=== PATIENT | male | born 1965 | race Caucasian/White ===

== ENCOUNTER 2021-04-22 10:41 | Day surgery (SDC) | payer OTHER ==
[~2021-04-22] VITALS: Ht 180.3 cm; Wt 72.6 kg
[2021-04-22 11:42] LABS: BASOPHILS ABSOLUTE AUTO 0.06 K/mm3 (0.00-0.23); BASOPHILS PERCENT AUTO 1 % (0-2); EOSINOPHILS ABSOLUTE AUTO 0.14 K/mm3 (0.00-0.68); EOSINOPHILS PERCENT AUTO 3 % (0-6); Hematocrit 48.1 % (37.0-53.0); Hemoglobin 16.6 g/dL (13.5-17.5); IMMATURE GRAN ABSOLUTE AUTO 0.01 K/mm3 (0.00-0.10); IMMATURE GRAN PERCENT AUTO 0 % (0-1); LYMPHOCYTES ABSOLUTE AUTO 2.03 K/mm3 (0.84-5.20); LYMPHOCYTES PERCENT AUTO 36 % (21-46); MONOCYTES ABSOLUTE AUTO 0.61 K/mm3 (0.16-1.47); MONOCYTES PERCENT AUTO 11 % (4-13); Mean Corpuscular HGB 33.5 pg (26.0-34.0); Mean Corpuscular HGB Conc 34.5 g/dL (31.5-36.5); Mean Corpuscular Volume 97 fL (80-100); NEUTROPHILS ABSOLUTE AUTO 2.74 K/mm3 (1.96-9.15); NEUTROPHILS PERCENT AUTO 49 % (41-73); Platelet Count 219 K/mm3 (150-400); RDW Coefficient Variation 12.7 % (11.7-14.2); RDW Standard Deviation 45.5 fL (35.1-46.3); Red Blood Cell Count 4.95 M/mm3 (4.30-5.90); White Blood Cell Count 5.59 K/mm3 (4.00-11.30)
[2021-04-22 12:01] LABS: Alanine Aminotransfer (ALT/SGP 75 U/L (12-78); Albumin, Blood 3.9 g/dL (3.4-5.0); Albumin/Globulin Ratio 0.9 (0.8-1.8); Alk Phos 57 U/L (50-136); Anion Gap 5 mmol/L (6-16); Aspartate Aminotrans (AST/SGOT 101 U/L (12-37); Blood Urea Nitrogen 3 mg/dL (8-24); Bun/Creatinine Ratio 4.5 (12.0-20.0); CO2, Blood 26 mmol/L (21-32); Calcium, Blood 8.7 mg/dL (8.5-10.1); Chloride, Blood 99 mmol/L (98-108); Creatinine, Blood 0.67 mg/dL (0.60-1.20); Globulin, Blood 4.4 g/dL (2.2-4.0); Glomerular Filtration Rate >60 (60-); Glucose, Blood 72 mg/dL (70-99); Potassium, Blood 5.3 mmol/L (3.5-5.5); Sodium, Blood 130 mmol/L (136-145); Total Protein, Blood 8.3 g/dL (6.4-8.2)
--- NOTE | 2021-04-22 14:21 | NUR ---
INTO [facility] V[facility] ADMISSION TO UNIT STARTED.
--- NOTE | 2021-04-22 14:58 | NUR ---
04/22/21 1458 OCHOA BURLESON History, Chart, Medications and Allergies reviewed before start of procedure. O2 VIA POM INTACT THROUGHOUT SEDATION/PROCEDURE. 3-LEAD EKG REVIEWED WITH PHYSICIAN PRIOR TO START OF PROCEDURE. MONITOR INTACT WITH CONTINUOUS PULSE OXIMETRY AND INTERMITTENT BP. PATIENT DETERMINED TO BE ASA APPROPRIATE FOR PROPOFOL SEDATION PRIOR TO START OF PROCEDURE BY .
[2021-04-22 15:12] LABS: SARS-Cov-2 (COVID-19) PCR, MMC NEGATIVE (NEGATIVE)
--- NOTE | 2021-04-22 15:33 | NUR ---
arrived from endo 1 to step vss.
--- NOTE | 2021-04-22 16:37 | NUR ---
RIDE HERE PATIENT DISCHARGED WITH ALL BELONGINGS AND DISCHARGE INSTRUCTIONS. HOME WIHT PARENTS.
== END 2021-04-22 16:37 | disposition home or self-care (01) ==
LOC: ER 10:41 → ORSCMMR 14:01
PROVIDERS: Internal Medicine Gastroenterology; Physician Assistant
PROC: 0D758ZZ Dilation of Esophagus, Via Natural or Artificial Opening Endoscopic (ICD-10-PCS; principal; 2021-04-22 14:30)
DX: K22.2 Esophageal obstruction (principal); R13.10 Dysphagia, unspecified; K20.80 Other esophagitis without bleeding; F17.210 Nicotine dependence, cigarettes, uncomplicated; Z20.822 Contact with and (suspected) exposure to COVID-19
CPT/HCPCS: 71046; 80053; 85025; 93005; 93010; 99285-25; C1726; J2704; J7030; J7120; U0004

== ENCOUNTER 2021-05-07 06:44 | Day surgery (SDC) | payer OTHER ==
[~2021-05-07] VITALS: Ht 182.9 cm; Wt 65.8 kg
== END 2021-05-07 09:00 | disposition home or self-care (01) ==
LOC: ORSCSDS 06:44
PROVIDERS: Internal Medicine Gastroenterology
PROC: 0D758ZZ Dilation of Esophagus, Via Natural or Artificial Opening Endoscopic (ICD-10-PCS; principal; 2021-05-07 08:15)
DX: K22.2 Esophageal obstruction (principal); K20.90 Esophagitis, unspecified without bleeding; Z79.899 Other long term (current) drug therapy
CPT/HCPCS: C1726; J0330; J0461; J2405; J2704; J7120

== ENCOUNTER 2021-12-07 07:03 | Emergency (ER) | payer OTHER ==
[~2021-12-07] VITALS: Ht 180.3 cm; Wt 72.6 kg
== END 2021-12-07 07:59 | disposition home or self-care (01) ==
LOC: ER 07:03
DX: G56.21 Lesion of ulnar nerve, right upper limb (principal); F17.210 Nicotine dependence, cigarettes, uncomplicated
CPT/HCPCS: 99283

== ENCOUNTER 2022-01-07 08:14 | Day surgery (SDC) | payer OTHER ==
[~2022-01-07] VITALS: Ht 182.9 cm; Wt 68.6 kg
--- NOTE | 2022-01-07 13:02 | NUR ---
01/07/22 1302 ADITYA BRADLEY 75 ML OF LR FLUIDS LEFT IN STEP DWN AT DC. IV DC 1310
== END 2022-01-07 13:24 | disposition home or self-care (01) ==
LOC: ORSCSDS 08:14
PROVIDERS: Orthopaedic Surgery
PROC: 01S40ZZ Reposition Ulnar Nerve, Open Approach (ICD-10-PCS; principal; 2022-01-07 09:45)
DX: G56.21 Lesion of ulnar nerve, right upper limb (principal); F17.210 Nicotine dependence, cigarettes, uncomplicated
CPT/HCPCS: J0171; J0690; J1100; J2405; J2704; J3010; J7120

== ENCOUNTER 2023-04-13 22:12 | Observation (INO) | payer OTHER ==
[~2023-04-13] VITALS: Ht 182.9 cm; Wt 71.1 kg
[2023-04-14] VITALS (18 sets, daily range): BP systolic 92–128; BP diastolic 53–64
[2023-04-14 00:22] LABS: BASOPHILS ABSOLUTE AUTO 0.08 K/mm3 (0.00-0.23); BASOPHILS PERCENT AUTO 1 % (0-2); EOSINOPHILS ABSOLUTE AUTO 0.33 K/mm3 (0.00-0.68); EOSINOPHILS PERCENT AUTO 3 % (0-6); Hematocrit 45.9 % (37.0-53.0); Hemoglobin 16.1 g/dL (13.5-17.5); IMMATURE GRAN ABSOLUTE AUTO 0.04 K/mm3 (0.00-0.10); IMMATURE GRAN PERCENT AUTO 0 % (0-1); LYMPHOCYTES ABSOLUTE AUTO 2.55 K/mm3 (0.84-5.20); LYMPHOCYTES PERCENT AUTO 20 % (21-46); MONOCYTES ABSOLUTE AUTO 0.59 K/mm3 (0.16-1.47); MONOCYTES PERCENT AUTO 5 % (4-13); Mean Corpuscular HGB 34.7 pg (26.0-34.0); Mean Corpuscular HGB Conc 35.1 g/dL (31.5-36.5); Mean Corpuscular Volume 99 fL (80-100); Mean Platelet Volume 9.6 fL (9.1-12.4); NEUTROPHILS ABSOLUTE AUTO 8.93 K/mm3 (1.96-9.15); NEUTROPHILS PERCENT AUTO 71 % (41-73); Platelet Count 222 K/mm3 (150-400); RDW Coefficient Variation 12.8 % (11.7-14.2); RDW Standard Deviation 46.9 fL (35.1-46.3); Red Blood Cell Count 4.64 M/mm3 (4.30-5.90); White Blood Cell Count 12.52 K/mm3 (4.00-11.30)
[2023-04-14 00:40] LABS: Bun/Creatinine Ratio 9.5 (12.0-20.0); Creatinine, Blood 1.05 mg/dL (0.60-1.20); Potassium, Blood 3.7 mmol/L (3.5-5.5)
--- NOTE | 2023-04-14 01:43 | NUR ---
04/14/23 0143 Cheyenne Mejía History, Chart, Medications and Allergies reviewed before start of procedure.PT TO BE INMTUBATED BY DR YUAN IN OR ROOM1.
[2023-04-14 04:21] LABS: BASOPHILS ABSOLUTE AUTO 0.04 K/mm3 (0.00-0.23); BASOPHILS PERCENT AUTO 0 % (0-2); EOSINOPHILS ABSOLUTE AUTO 0.12 K/mm3 (0.00-0.68); EOSINOPHILS PERCENT AUTO 1 % (0-6); Hematocrit 35.1 % (37.0-53.0); Hemoglobin 12.2 g/dL (13.5-17.5); IMMATURE GRAN ABSOLUTE AUTO 0.04 K/mm3 (0.00-0.10); IMMATURE GRAN PERCENT AUTO 0 % (0-1); LYMPHOCYTES ABSOLUTE AUTO 0.71 K/mm3 (0.84-5.20); LYMPHOCYTES PERCENT AUTO 6 % (21-46); MONOCYTES ABSOLUTE AUTO 0.59 K/mm3 (0.16-1.47); MONOCYTES PERCENT AUTO 5 % (4-13); Mean Corpuscular HGB Conc 34.8 g/dL (31.5-36.5); Mean Corpuscular Volume 101 fL (80-100); Mean Platelet Volume 10.2 fL (9.1-12.4); NEUTROPHILS ABSOLUTE AUTO 9.84 K/mm3 (1.96-9.15); NEUTROPHILS PERCENT AUTO 87 % (41-73); Platelet Count 180 K/mm3 (150-400); RDW Coefficient Variation 12.8 % (11.7-14.2); RDW Standard Deviation 47.7 fL (35.1-46.3); Red Blood Cell Count 3.49 M/mm3 (4.30-5.90); White Blood Cell Count 11.34 K/mm3 (4.00-11.30)
[2023-04-14 04:43] LABS: Albumin, Blood 2.9 g/dL (3.4-5.0); Bilirubin, Total 0.7 mg/dL (0.1-1.0); Bun/Creatinine Ratio 18.6 (12.0-20.0); Calcium, Blood 7.9 mg/dL (8.5-10.1); Creatinine, Blood 0.86 mg/dL (0.60-1.20); Globulin, Blood 2.9 g/dL (2.2-4.0); Potassium, Blood 4.7 mmol/L (3.5-5.5); Total Protein, Blood 5.8 g/dL (6.4-8.2)
--- NOTE | 2023-04-14 05:23 | NUR ---
SHIFT SUMMARY ASSUMED CARE OF PT AT 0320. PT IS A/OX4. HEART SOUNDS REGULAR. LUNG SOUNDS TIGHT. PT REPORTS SMOKING A PACK A DAY. PT USED URINAL AT BEDSIDE. PT C/O HIS THROAT HURTING AND BEING TIRED. VITAL SIGNS STABLE. PT RESTING IN ROOM.
[2023-04-14 10:10] LABS: Hematocrit 36.5 % (37.0-53.0); Hemoglobin 12.5 g/dL (13.5-17.5)
--- NOTE | 2023-04-14 10:15 | NUR ---
CARE ASSUMPTION/PATIENT TRANSFER TO [facility] This RN assumed care at 0700. Patient is alert and oriented x4. vital signs stable. tele sr 60-70. spo2 >90% on room air. patient reports no pain, chest pain/pressure or shortness of breath. patient is indepdent in the room and in ADL's. patient started on a protonix drip at 10mls/hr continous. normal saline at 75mls/hr. patient has a bed a [facility] in [place]. this rn has called the hospital twice to give reprot, at this number [phone], room 490, but this RN has been unsucessful in getting in touch with a staff member. will continue to try. patient left via transport at 1015. patient left with belongings and patient mom took clothes home. patient left in no distress. see shift assessment for further details. patient npo and remained npo at time of transfer.
--- NOTE | 2023-04-14 10:24 | NUR ---
CONTACT WITH [facility] THIS RN GOT IN CONTACT WITH [facility]. WALLY RN IS TO CALL THIS RN BACK AND GET REPORT. [facility] RN NOTIFED THEM OF PATIENT LEAVING THIS HOSPITAL ALREADY.
--- NOTE | 2023-04-14 11:29 | NUR ---
REPORT TO DAVEY CAMERON THIS RN GAVE REPORT TO WALLY CAMERON ON THIS PATIENT.
== END 2023-04-14 10:10 | disposition short-term general hospital (02) ==
LOC: ER 22:12 → PCU 22:31 → ER 04-14 00:55 → PCU 04-14 03:22
PROVIDERS: Emergency Medicine; Internal Medicine Gastroenterology; ADMIT Internal Medicine
PROC: 0DC58ZZ Extirpation of Matter from Esophagus, Via Natural or Artificial Opening Endoscopic (ICD-10-PCS; principal; 2023-04-14 01:45)
DX: T18.128A Food in esophagus causing other injury, initial encounter (principal); K22.2 Esophageal obstruction; K22.11 Ulcer of esophagus with bleeding
CPT/HCPCS: 36415; 70360; 71045; 80048; 80053; 85014; 85018; 85025; 86850; 86900; 86901; 96374; 96375; 96376; 99285-25; C9113; G0378; J0330; J1100; J1610; J2354; J2370; J2405; J2704; J2765; J3010; J7030; J7120